=== PATIENT | male | born 1945 | race Two or more races ===

== ENCOUNTER 2021-06-15 11:52 | Emergency (ER) | payer MEDICAID, OTHER ==
[~2021-06-15] VITALS: Ht 177.8 cm; Wt 100.7 kg
[~2021-06-15 11:52] MED LIST: AMLO-496 PO; BENA20TA14 PO; BUDE160A3 IN; CHLO25TA2 PO; METF-372 PO; METO-159 PO; MONT-8 PO; OMEP20TA44 PO; PRAV20TA3 PO; TAMS0.4C36 PO
[2021-06-15] MEDS ORDERED: cloNIDine HCL 0.1 MG TAB PO ONE (12:15)
[2021-06-15 13:33] LABS: Basophils # (auto) 0.2 10 ^3/uL (0-0.2); Basophils % (auto) 3.3 % (0.0-2.0); Eosinophils # (auto) 0.2 10 ^3/uL (0-0.8); Eosinophils % (auto) 2.4 % (0.0-7.0); Hematocrit 41.4 % (41.0-53.0); Hemoglobin 14.1 g/dL (13.5-17.5); Lymphocytes # (auto) 1.3 10 ^3/uL (0.4-5.4); Lymphocytes % (auto) 16.8 % (10.0-50.0); Mean Corpuscular Hemoglobin 30.9 pg (28.0-32.0); Mean Corpuscular Volume 90.8 fL (80.0-100.0); Monocytes # (auto) 0.7 10 ^3/uL (0-1.3); Monocytes % (auto) 8.7 % (0.0-12.0); Neutrophils # (auto) 5.2 10 ^3/uL (1.6-8.6); Neutrophils % (auto) 68.8 % (37.0-80.0); Nucleated Red Blood Cells % 0.1 %; Red Blood Cells 4.56 10^6/uL (4.5-5.90); Red Cell Distribution Width 14.6 % (11.8-14.3); White Blood Cell 7.6 10^3/uL (4.4-10.8)
[2021-06-15 13:43] LABS: Albumin 3.7 g/dL (3.4-5.0); Calcium 8.6 mg/dL (8.5-10.1)
[2021-06-15 13:49] LABS: BUN/Creatinine Ratio 19.2; Bilirubin, Total 0.5 mg/dL (0.2-1.0); Total Protein 7.7 g/dL (6.4-8.2)
[2021-06-15 16:38] VITALS: BP 163/93
== END 2021-06-15 16:49 | disposition home or self-care (01) ==
LOC: ER 11:52
DX: I16.0 Hypertensive urgency (principal); I10 Essential (primary) hypertension; R51.9 Headache, unspecified; R42 Dizziness and giddiness; J45.909 Unspecified asthma, uncomplicated; E78.5 Hyperlipidemia, unspecified
CPT/HCPCS: 36415; 70450; 71045; 80053; 84484; 85025; 93005

== ENCOUNTER 2021-09-27 20:02 | Inpatient (IN) | payer OTHER, MEDICAID ==
[~2021-09-27] VITALS: Ht 162.6 cm; Wt 101.2 kg
[2021-09-27 20:48] LABS: Urine WBC None Seen /hpf (0 - 3)
[2021-09-27 20:57] LABS: Urine Bacteria NONE SEEN /hpf (None Seen); Urine Blood Negative /uL (Negative)
[2021-09-27 21:24] LABS: Basophils # (auto) 0.1 10 ^3/uL (0-0.2); Basophils % (auto) 0.7 % (0.0-2.0); Eosinophils # (auto) 0.5 10 ^3/uL (0-0.8); Eosinophils % (auto) 4.2 % (0.0-7.0); Hematocrit 42.5 % (41.0-53.0); Hemoglobin 14.3 g/dL (13.5-17.5); Lymphocytes # (auto) 1.4 10 ^3/uL (0.4-5.4); Lymphocytes % (auto) 11.5 % (10.0-50.0); Mean Corpuscular Hemoglobin 30.2 pg (28.0-32.0); Mean Corpuscular Hgb Conc. 33.6 g/dL (32.0-36.0); Mean Corpuscular Volume 89.8 fL (80.0-100.0); Monocytes # (auto) 0.8 10 ^3/uL (0-1.3); Monocytes % (auto) 6.6 % (0.0-12.0); Neutrophils # (auto) 9.3 10 ^3/uL (1.6-8.6); Nucleated Red Blood Cells % 0.1 %; Red Blood Cells 4.73 10^6/uL (4.5-5.90); Red Cell Distribution Width 14.3 % (11.8-14.3)
[2021-09-27] MEDS ORDERED: NITROGLYCERIN 0.4 MG SL TAB SL ONE (21:30)
[2021-09-27 21:44] LABS: Albumin 3.5 g/dL (3.4-5.0)
[2021-09-27 21:46] LABS: BUN/Creatinine Ratio 11.6
[2021-09-27 21:51] LABS: Bilirubin, Total 0.5 mg/dL (0.2-1.0); Total Protein 8.1 g/dL (6.4-8.2)
[2021-09-28] VITALS (47 sets, daily range): BP systolic 114–164; BP diastolic 66–95
[2021-09-28] MEDS ORDERED: FUROSEMIDE 40 MG/4 ML VIAL IV ONE (00:45)
[2021-09-28] MEDS ORDERED: NITROGLYCERIN 50MG/250ML 250 ML IV ONE (01:30)
[2021-09-28] MEDS ORDERED: DOCUSATE SOD 100 MG CAP PO PRN (07:00)
[2021-09-28] MEDS ORDERED: HYDROcodone-ACET 5/325MG TAB PO PRN (07:00)
[2021-09-28] MEDS ORDERED: MORPHINE SULFATE 4 MG/ML SYR/VIAL IV PRN (07:00)
[2021-09-28] MEDS ORDERED: NITROGLYCERIN 0.4 MG SL TAB SL PRN (07:00)
[2021-09-28] MEDS ORDERED: MORPHINE SULFATE INJECTION 2 MG/ML SYRG IV PRN (07:00)
[2021-09-28] MEDS: ENOXAPARIN SOD 40 MG/0.4 ML SYRINGE SC SCH (10:00)
[2021-09-28] MEDS: MULTIPLE VITAMIN TAB PO SCH (10:00)
[2021-09-28] MEDS: ASCORBIC ACID 500 MG TAB PO SCH ×2 (10:00→21:02)
[2021-09-28] MEDS: AZITHROMYCIN 500MG/ 250ML 250 ML IV SCH (10:00)
[2021-09-28] MEDS: ZINC SULFATE 220mg CAP or TAB PO SCH (10:00)
[2021-09-28] MEDS: ONDANSETRON HCL 4 MG/2 ML VIAL IV PRN ×2 (10:14→10:47)
[2021-09-28] MEDS ORDERED: IPRATROPIUM BROM 0.5 MG/2.5ML INH SOL NEB PRN (12:45)
[2021-09-28] MEDS ORDERED: MET50T PO (14:04)
[2021-09-28] MEDS ORDERED: ATOR20TA50 PO (14:04)
[2021-09-28] MEDS ORDERED: LISI20TA28 PO (14:04)
[2021-09-28] MEDS ORDERED: TAMS0.4C36 PO (14:05)
[2021-09-28] MEDS ORDERED: ASPI-498 PO (14:09)
[2021-09-28] MEDS ORDERED: DEXTROSE (50%) 50ML SYRG IV PRN (14:15)
[2021-09-28] MEDS ORDERED: LISINOPRIL 20 MG TAB ONE (15:12)
[2021-09-28] MEDS: ACETAMINOPHEN 325 MG TAB PO PRN ×2 (15:15→21:01)
[2021-09-28] MEDS: LISINOPRIL 20 MG TAB PO SCH (15:16)
[2021-09-28] MEDS: InsuLIN REG 1unit/0.01ml Soln (100units/ml) SC SCH ×2 (17:20→21:15)
[2021-09-28] MEDS: ACCU-CHEK COMFORT CURVE STRIP VI SCH ×2 (17:24→21:15)
[2021-09-28] MEDS: TAMSULOSIN HYDROCHLORIDE 0.4 MG CAP PO SCH (17:51)
[2021-09-28] MEDS: METOPROLOL TARTRATE 50 MG TAB PO SCH (21:02)
[2021-09-28] MEDS: PANTOPRAZOLE 40 MG TAB PO SCH (21:02)
[2021-09-28] MEDS: MONTELUKAST SODIUM 10 MG TAB PO SCH (21:02)
[2021-09-28] MEDS: DOCUSATE SOD 100 MG CAP PO SCH (21:02)
[2021-09-29] VITALS (45 sets, daily range): BP systolic 121–183; BP diastolic 70–112
[2021-09-29] MEDS ORDERED: NITROGLYCERIN 50MG/250ML 250 ML IV SCH (01:39)
[2021-09-29 03:48] LABS: Basophils # (auto) 0.1 10 ^3/uL (0-0.2); Basophils % (auto) 0.5 % (0.0-2.0); Eosinophils # (auto) 0.3 10 ^3/uL (0-0.8); Hematocrit 36.4 % (41.0-53.0); Hemoglobin 12.4 g/dL (13.5-17.5); Lymphocytes # (auto) 0.9 10 ^3/uL (0.4-5.4); Lymphocytes % (auto) 9.1 % (10.0-50.0); Mean Corpuscular Hemoglobin 30.7 pg (28.0-32.0); Mean Corpuscular Hgb Conc. 34.2 g/dL (32.0-36.0); Mean Corpuscular Volume 89.8 fL (80.0-100.0); Monocytes # (auto) 1.1 10 ^3/uL (0-1.3); Monocytes % (auto) 11.9 % (0.0-12.0); Neutrophils # (auto) 7.1 10 ^3/uL (1.6-8.6); Neutrophils % (auto) 75.5 % (37.0-80.0); Nucleated Red Blood Cells % 0.1 %; Red Blood Cells 4.05 10^6/uL (4.5-5.90); Red Cell Distribution Width 14.3 % (11.8-14.3); White Blood Cell 9.4 10^3/uL (4.4-10.8)
[2021-09-29 04:07] LABS: BUN/Creatinine Ratio 18.5; Calcium 8.2 mg/dL (8.5-10.1); Potassium 4.3 mmol/L (3.5-5.1)
[2021-09-29 04:10] LABS: Bilirubin, Total 0.6 mg/dL (0.2-1.0); Total Protein 6.8 g/dL (6.4-8.2)
[2021-09-29] MEDS: ACCU-CHEK COMFORT CURVE STRIP VI SCH ×4 (06:54→22:38)
[2021-09-29] MEDS: InsuLIN REG 1unit/0.01ml Soln (100units/ml) SC SCH ×4 (06:55→22:42)
[2021-09-29] MEDS ORDERED: hydrALAZINE HCL 20 MG/ML VL ONE (07:48)
[2021-09-29] MEDS: AZITHROMYCIN 500MG/ 250ML 250 ML IV SCH (09:25)
[2021-09-29] MEDS: DOCUSATE SOD 100 MG CAP PO SCH ×2 (09:26→22:28)
[2021-09-29] MEDS: ASPirin-EC 81 mg tab PO SCH (09:26)
[2021-09-29] MEDS: ATORVASTATIN 20 MG TAB PO SCH (09:26)
[2021-09-29] MEDS: ZINC SULFATE 220mg CAP or TAB PO SCH (09:26)
[2021-09-29] MEDS: PANTOPRAZOLE 40 MG TAB PO SCH ×2 (09:27→22:28)
[2021-09-29] MEDS: ASCORBIC ACID 500 MG TAB PO SCH ×2 (09:27→22:29)
[2021-09-29] MEDS: LISINOPRIL 20 MG TAB PO SCH (09:28)
[2021-09-29] MEDS: POLYETHYLENE GLYCOL 17 GM PWDR PO SCH (10:00)
[2021-09-29] MEDS ORDERED: PANTOPRAZOLE 40 MG TAB PO SCH (10:00)
[2021-09-29] MEDS: METOPROLOL TARTRATE 50 MG TAB PO SCH ×2 (10:55→22:33)
[2021-09-29] MEDS ORDERED: hydrALAZINE HCL 20 MG/ML VL IV PRN (12:30)
[2021-09-29] MEDS: FUROSEMIDE 40 MG/4 ML VIAL IV SCH (13:17)
[2021-09-29] MEDS: MULTIPLE VITAMIN TAB PO SCH (13:17)
[2021-09-29] MEDS: ENOXAPARIN SOD 40 MG/0.4 ML SYRINGE SC SCH (13:18)
[2021-09-29] MEDS: amLODIPine BESYLATE 5 MG TAB PO SCH (13:18)
[2021-09-29] MEDS: TAMSULOSIN HYDROCHLORIDE 0.4 MG CAP PO SCH (19:41)
[2021-09-29] MEDS: MONTELUKAST SODIUM 10 MG TAB PO SCH (22:28)
[2021-09-30 05:00] VITALS: BP 120/82
[2021-09-30 06:28] LABS: Basophils # (auto) 0 10 ^3/uL (0-0.2); Basophils % (auto) 0.5 % (0.0-2.0); Eosinophils # (auto) 0.1 10 ^3/uL (0-0.8); Eosinophils % (auto) 1.5 % (0.0-7.0); Hematocrit 37.5 % (41.0-53.0); Hemoglobin 12.6 g/dL (13.5-17.5); Lymphocytes # (auto) 1.1 10 ^3/uL (0.4-5.4); Lymphocytes % (auto) 13.2 % (10.0-50.0); Mean Corpuscular Hemoglobin 30.2 pg (28.0-32.0); Mean Corpuscular Hgb Conc. 33.6 g/dL (32.0-36.0); Mean Corpuscular Volume 90.1 fL (80.0-100.0); Monocytes % (auto) 11.7 % (0.0-12.0); Neutrophils # (auto) 6.2 10 ^3/uL (1.6-8.6); Neutrophils % (auto) 73.1 % (37.0-80.0); Nucleated Red Blood Cells % 0.2 %; Red Blood Cells 4.16 10^6/uL (4.5-5.90); Red Cell Distribution Width 14.1 % (11.8-14.3); White Blood Cell 8.5 10^3/uL (4.4-10.8)
[2021-09-30] MEDS: InsuLIN REG 1unit/0.01ml Soln (100units/ml) SC SCH ×4 (06:33→22:00)
[2021-09-30] MEDS: ACCU-CHEK COMFORT CURVE STRIP VI SCH ×4 (06:34→22:59)
[2021-09-30 06:47] LABS: BUN/Creatinine Ratio 19.5; Calcium 8.5 mg/dL (8.5-10.1)
[2021-09-30 09:00] VITALS: BP 126/75
[2021-09-30] MEDS: IPRATROPIUM BROM 0.5 MG/2.5ML INH SOL NEB SCH ×4 (09:43→22:03)
[2021-09-30] MEDS: ALBUTEROL SULF 2.5 MG/0.5ML(0.5%) NEB SOLN NEB SCH ×4 (09:43→22:03)
[2021-09-30] MEDS: POLYETHYLENE GLYCOL 17 GM PWDR PO SCH (10:00)
[2021-09-30] MEDS: DOCUSATE SOD 100 MG CAP PO SCH ×2 (10:00→22:58)
[2021-09-30] MEDS: ZINC SULFATE 220mg CAP or TAB PO SCH (10:33)
[2021-09-30] MEDS: ASCORBIC ACID 500 MG TAB PO SCH ×2 (10:33→22:58)
[2021-09-30] MEDS: ATORVASTATIN 20 MG TAB PO SCH (10:33)
[2021-09-30] MEDS: MULTIPLE VITAMIN TAB PO SCH (10:33)
[2021-09-30] MEDS: PANTOPRAZOLE 40 MG TAB PO SCH ×2 (10:33→22:58)
[2021-09-30] MEDS: LISINOPRIL 20 MG TAB PO SCH (10:34)
[2021-09-30] MEDS: METOPROLOL TARTRATE 50 MG TAB PO SCH ×2 (10:34→22:58)
[2021-09-30] MEDS: ASPirin-EC 81 mg tab PO SCH (10:35)
[2021-09-30] MEDS: amLODIPine BESYLATE 5 MG TAB PO SCH (10:35)
[2021-09-30] MEDS: AZITHROMYCIN 500MG/ 250ML 250 ML IV SCH (10:36)
[2021-09-30] MEDS: FUROSEMIDE 40 MG/4 ML VIAL IV SCH (10:36)
[2021-09-30] MEDS: ENOXAPARIN SOD 40 MG/0.4 ML SYRINGE SC SCH (10:38)
[2021-09-30 13:00] VITALS: BP 100/73
[2021-09-30 17:00] VITALS: BP 124/76
[2021-09-30] MEDS: TAMSULOSIN HYDROCHLORIDE 0.4 MG CAP PO SCH (17:52)
[2021-09-30 22:00] VITALS: BP 121/76
[2021-09-30] MEDS: MONTELUKAST SODIUM 10 MG TAB PO SCH (22:58)
[2021-10-01] MEDS: IPRATROPIUM BROM 0.5 MG/2.5ML INH SOL NEB SCH ×4 (02:03→14:37)
[2021-10-01] MEDS: ALBUTEROL SULF 2.5 MG/0.5ML(0.5%) NEB SOLN NEB SCH ×4 (02:03→14:37)
[2021-10-01 05:00] VITALS: BP 139/82
[2021-10-01] MEDS: InsuLIN REG 1unit/0.01ml Soln (100units/ml) SC SCH ×2 (06:47→11:30)
[2021-10-01] MEDS: ACCU-CHEK COMFORT CURVE STRIP VI SCH ×2 (06:47→12:50)
[2021-10-01] MEDS: POLYETHYLENE GLYCOL 17 GM PWDR PO SCH (08:05)
[2021-10-01] MEDS: ASPirin-EC 81 mg tab PO SCH (08:07)
[2021-10-01] MEDS: ATORVASTATIN 20 MG TAB PO SCH (08:07)
[2021-10-01] MEDS: MULTIPLE VITAMIN TAB PO SCH (08:08)
[2021-10-01] MEDS: ZINC SULFATE 220mg CAP or TAB PO SCH (08:08)
[2021-10-01] MEDS: ASCORBIC ACID 500 MG TAB PO SCH (08:09)
[2021-10-01] MEDS: ENOXAPARIN SOD 40 MG/0.4 ML SYRINGE SC SCH (08:10)
[2021-10-01] MEDS: DOCUSATE SOD 100 MG CAP PO SCH (08:10)
[2021-10-01] MEDS: PANTOPRAZOLE 40 MG TAB PO SCH (08:10)
[2021-10-01] MEDS: AZITHROMYCIN 500MG/ 250ML 250 ML IV SCH (08:13)
[2021-10-01] MEDS: FUROSEMIDE 40 MG/4 ML VIAL IV SCH (08:22)
[2021-10-01] MEDS: amLODIPine BESYLATE 5 MG TAB PO SCH (08:23)
[2021-10-01] MEDS: METOPROLOL TARTRATE 50 MG TAB PO SCH (08:23)
[2021-10-01] MEDS: LISINOPRIL 20 MG TAB PO SCH (08:24)
[2021-10-01] MEDS ORDERED: BUDESONIDE (INHALATION) 0.5 MG/2 ML NEB NEB SCH (10:00)
[2021-10-01] MEDS: predniSONE 20 MG TAB PO SCH ×2 (10:14→11:02)
[2021-10-01] MEDS ORDERED: PRED20TA2 PO (13:39)
[2021-10-01] MEDS ORDERED: DOXY-346 PO (13:39)
[2021-10-01] MEDS ORDERED: MET50T PO (13:39)
[2021-10-01] MEDS ORDERED: FURO1TAB33 PO (13:41)
[2021-10-01 17:25] VITALS: BP 145/100
== END 2021-10-01 18:00 | disposition home health service (06) | DRG 871 ==
LOC: ER 20:08 → TELE 09-28 06:51 → TELE-EAST 09-28 11:02 → ICU WEST 09-28 11:09 → TELE-EAST 09-29 20:10
PROVIDERS: ADMIT Internal Medicine; ATTEND Internal Medicine
DX: A41.9 Sepsis, unspecified organism (principal); J18.9 Pneumonia, unspecified organism; J96.21 Acute and chronic respiratory failure with hypoxia; J96.22 Acute and chronic respiratory failure with hypercapnia; I16.9 Hypertensive crisis, unspecified; I42.2 Other hypertrophic cardiomyopathy; I16.1 Hypertensive emergency; I50.9 Heart failure, unspecified; E11.65 Type 2 diabetes mellitus with hyperglycemia; E66.9 Obesity, unspecified; E78.00 Pure hypercholesterolemia, unspecified; E78.5 Hyperlipidemia, unspecified; K59.00 Constipation, unspecified; N40.0 Benign prostatic hyperplasia without lower urinary tract symptoms; Z20.822 Contact with and (suspected) exposure to COVID-19; I11.0 Hypertensive heart disease with heart failure; J45.909 Unspecified asthma, uncomplicated; Z79.84 Long term (current) use of oral hypoglycemic drugs; Z68.39 Body mass index [BMI] 39.0-39.9, adult; Z79.899 Other long term (current) drug therapy
CPT/HCPCS: 36415; 36600; 71045; 74176; 80048; 80053; 81001; 82805; 82962; 83690; 83880; 84484; 85025; 87081; 93005; 93306; 94640; 96365; 96367; 96372; 96375; 99291; G0378; J1815; J2405

== ENCOUNTER 2022-06-28 10:03 | Emergency (ER) | payer OTHER, MEDICAID ==
[~2022-06-28] VITALS: Ht 165.1 cm; Wt 107.0 kg
[~2022-06-28 10:03] MED LIST changes: +ASPI-498 PO; +ATOR20TA50 PO; +DOXY-346 PO; +FURO1TAB33 PO; +MET50T PO; -METO-159 PO; -PRAV20TA3 PO; +PRED20TA2 PO
[2022-06-28] MEDS ORDERED: cloNIDine HCL 0.1 MG TAB PO ONE (11:15)
[2022-06-28] MEDS ORDERED: IPRATROPIUM BROM 0.5 MG/2.5ML INH SOL NEB ONE (12:45)
[2022-06-28] MEDS ORDERED: ALBUTEROL SULF 2.5 MG/0.5ML(0.5%) NEB SOLN NEB ONE (12:45)
[2022-06-28] MEDS ORDERED: ALBUTEROL MEDNEB 2.5 mg/3ml NEB ONE (12:59)
[2022-06-28 13:31] VITALS: BP 126/82
[2022-06-28] MEDS ORDERED: ALBU108A5 IN (13:33)
[2022-06-28] MEDS ORDERED: LEVO500T31 PO (13:33)
[2022-06-28] MEDS ORDERED: PROM1SOL4 PO (13:33)
== END 2022-06-28 13:42 | disposition home or self-care (01) ==
LOC: ER 10:05
DX: J20.9 Acute bronchitis, unspecified (principal); I10 Essential (primary) hypertension; R07.89 Other chest pain; J45.909 Unspecified asthma, uncomplicated; E11.9 Type 2 diabetes mellitus without complications; E78.5 Hyperlipidemia, unspecified
CPT/HCPCS: 71046; 82962; 93005; 94640; 99283; J7030; J7644

== ENCOUNTER 2022-10-15 06:07 | Emergency (ER) | payer OTHER, MEDICAID ==
[~2022-10-15] VITALS: Ht 165.1 cm; Wt 104.5 kg
[~2022-10-15 06:07] MED LIST changes: +ALBU108A5 IN; +LEVO500T31 PO; +PROM1SOL4 PO
[2022-10-15] MEDS ORDERED: guaiFENesin-DM 100/10mg/5ml SYR PO ONE (08:15)
[2022-10-15] MEDS ORDERED: ACETAMINOPHEN 500 MG TAB PO ONE (08:15)
[2022-10-15 08:37] VITALS: BP 160/109
[2022-10-15 09:01] LABS: Basophils # (auto) 0.1 10 ^3/uL (0-0.2); Basophils % (auto) 0.7 % (0.0-2.0); Eosinophils # (auto) 0.3 10 ^3/uL (0-0.8); Eosinophils % (auto) 2.9 % (0.0-7.0); Hematocrit 44.8 % (41.0-53.0); Hemoglobin 15.1 g/dL (13.5-17.5); Lymphocytes # (auto) 1.3 10 ^3/uL (0.4-5.4); Lymphocytes % (auto) 13.7 % (10.0-50.0); Mean Corpuscular Hemoglobin 30.7 pg (28.0-32.0); Mean Corpuscular Hgb Conc. 33.6 g/dL (32.0-36.0); Mean Corpuscular Volume 91.3 fL (80.0-100.0); Monocytes # (auto) 0.7 10 ^3/uL (0-1.3); Monocytes % (auto) 7.3 % (0.0-12.0); Neutrophils # (auto) 7.4 10 ^3/uL (1.6-8.6); Neutrophils % (auto) 75.4 % (37.0-80.0); Nucleated Red Blood Cells % 0.1 %; Red Blood Cells 4.91 10^6/uL (4.5-5.90); Red Cell Distribution Width 15.1 % (11.8-14.3); White Blood Cell 9.8 10^3/uL (4.4-10.8)
[2022-10-15 09:32] LABS: Urine Bacteria NONE SEEN /hpf (None Seen); Urine Blood Negative /uL (Negative); Urine Mucus FEW (None Seen); Urine Specific Gravity 1.024 (1.001-1.035); Urine WBC 1 /hpf (0 - 3)
[2022-10-15 09:55] LABS: Albumin 3.5 g/dL (3.4-5.0); Calcium 9.5 mg/dL (8.5-10.1); Potassium 3.6 mmol/L (3.5-5.1)
[2022-10-15 09:59] LABS: BUN/Creatinine Ratio 13.4 (10.0-20.0); Total Protein 7.6 g/dL (6.4-8.2)
[2022-10-15] MEDS ORDERED: ACET1CAP14 PO ×2 (10:28→11:56)
[2022-10-15] MEDS ORDERED: LEVO750T64 PO ×2 (10:28→11:56)
[2022-10-15] MEDS ORDERED: BENZ1LOZ3 MT ×2 (10:28→11:56)
[2022-10-15] MEDS ORDERED: PROM1SOL4 PO ×2 (10:28→11:56)
== END 2022-10-15 10:44 | disposition home or self-care (01) ==
LOC: ER 06:07
DX: J18.9 Pneumonia, unspecified organism (principal); E11.9 Type 2 diabetes mellitus without complications; I10 Essential (primary) hypertension; E78.5 Hyperlipidemia, unspecified; J45.909 Unspecified asthma, uncomplicated; Z20.822 Contact with and (suspected) exposure to COVID-19
CPT/HCPCS: 36415; 71045; 80053; 81001; 83605; 85025; 87040; 87426; 87804

== ENCOUNTER 2024-09-18 11:31 | Emergency (ER) | payer OTHER, MEDICAID ==
[~2024-09-18] VITALS: Ht 167.6 cm; Wt 111.0 kg
[~2024-09-18 11:31] MED LIST changes: +ACET-6 PO; +ACET1CAP14 PO; -AMLO-496 PO; +AMLO1TAB22 PO; +AMLO1TAB23 PO; +ASPI-325 PO; +AZIT-43 PO; +BENA-36 PO; -BENA20TA14 PO; +BENZ1LOZ3 MT; +ERGO1CAP23 PO; +HYDR12.55 PO; +LEVO750T40 PO; +LISI20TA56 PO; +PANT40TA57 PO; -TAMS0.4C36 PO; +TAMS0.4C39 PO
--- NOTE | 2024-09-18 11:45 | ED.PDOC ---
History of Present Illness HPI Comments 79Y M with PMHx DM, HTN, and HLD presents to ED via EMS for chief complaint possible STEMI. Pt reports weakness x2yrs and chronic left shoulder pain. The lt shoulder pain worsens with movement. Pt denies chest pain, SOB, and n/v/d. Per pt, he was seen at [facility] and was referred to ED due to EKG showing ST elevation. EKG done in ED does not show ST elevation. No other symptoms reported. Chief Complaint: General Weakness Time Seen by MD: 11:30 Primary Care Provider: unknown Reviewed Notes: Nurses Notes, Adult Live In Caregiver Notes, Medications, Allergies Allergies: Coded Allergies: NO KNOWN ALLERGIES (Unverified , 08/02/14) Home Meds Active Scripts Albuterol Sulfate (Albuterol Sulfate Hfa) 108 Mcg/Act Aer, 108 MCG IN Q6HP PRN for 30 Days, #30 AER Prov:ROSALIA DE SANTIAGO MD 06/22/23 Ergocalciferol (VITAMIN D 65607 UNIT) 50,[address] [place], [address] UNIT PO Q7D for 7 Days, #7 TAB Prov:ROSALIA DE SANTIAGO MD 06/22/23 Azithromycin (Azithromycin) 250 Mg Tab, 250 MG PO DAILY for 3 Days, #3 TAB Prov:ROSALIA DE SANTIAGO MD 06/22/23 Promethazine-Dm (Promethazine Dm 6.25-15 mg/5Ml) 1 Citlaly Citlaly, 5 ML PO Q6HPRN PRN, #120 ML 0 Refills Prov:RUBÉN BURROUGHS [facility] 10/15/22 Benzocaine-Menthol (Mouth-Thro (Cepacol Sore Throat Extra 15-3.6 mg) 1 Sai Sai, 1 SAI MT Q2HPRN PRN, #16 SAI 0 Refills Prov:RUBÉN BURROUGHS [facility] 10/15/22 Acetaminophen (Tylenol) 325 Mg Cap, 325 MG PO Q4HPRN PRN, #30 CAP 0 Refills Take 1-2 caps po q4h prn for pain/fever (Do not exceed 3,000mg of acetaminophen in 24 hours) Prov:RUBÉN BURROUGHS [facility] 10/15/22 Levofloxacin Hemihydrate (LEVOFLOXACIN) 750 Mg Tab, 1 TAB PO DAILY for 7 Days, #7 TAB 0 Refills Prov:RUBÉN BURROUGHS [employer] 10/15/22 Promethazine-Dm (Promethazine Dm 6.25-15 mg/5Ml) 1 Citlaly Citlaly, 5 ML PO TID, #150 ML Prov:MARYATIGREQUAN PA 06/28/22 Albuterol Sulfate (Albuterol Sulfate Hfa) 108 Mcg/Act Aer, 108 MCG IN TID, #90 AER Prov:MARYATIGREQUAN PA 06/28/22 Levofloxacin (Levaquin) 500 Mg Tab, 500 MG PO DAILY, #10 TAB Prov:MARYAROSEMARIECait PA 06/28/22 Furosemide (Lasix) 20 Mg Tb, 1 TAB PO DAILY, #30 TAB 1 Refill Prov:RASHIDA ZARCO TEARER 10/01/21 Doxycycline (Monohydrate) (Doxycycline) 100 Mg Tab, 100 MG PO BID for 7 Days, #14 TAB Prov:CAROLEERASHIDA Montesinos TEARER 10/01/21 Prednisone (Prednisone) 20 Mg Tab, 40 MG PO DAILY for 5 Days, #10 TAB Prov:CAROLEERASHIDA M TEARER 10/01/21 Metoprolol Tartrate (LOPRESSOR TABLET) 50 Mg Tb, 50 MG PO BID for 30 Days, #60 TAB Prov:RASHIDA ZARCO TEARER 10/01/21 Omeprazole ([facility] Omeprazole) 20 Mg Tab, 20 MG PO DAILY, #30 TAB Prov:FRANK,PELON TEARER 08/02/14 Budesonide-Formoterol Fumarate (Symbicort) 1 Aer Aer, 1 AER IN BID, #10 AER Prov:FRANK,PELON TEARER 08/02/14 Benazepril Hcl (Benazepril Hcl) 20 Mg Tab, 1 TAB PO DAILY, #30 TAB 5 Refills Prov:FRANK,PELON TEARER 08/02/14 Amlodipine Besylate (Amlodipine Besylate) 10 Mg Tab, 1 TAB PO DAILY, #30 TAB 5 Refills Prov:FRANK,PELON TEARER 08/02/14 Metformin Hydrochloride (Metformin Hcl) 1,000 Mg Tab, 1 TAB PO BID, #60 TAB 5 Refills Prov:FRANK,PELON TEARER 08/02/14 Tamsulosin Hcl (Tamsulosin Hcl) 0.4 Mg Cap, 1 CAP PO DAILY, #30 CAP 5 Refills Prov:FRANKPELON TEARER 08/02/14 Montelukast Sodium (MONTELUKAST SODIUM) 10 Mg Tab, 1 TAB PO DAILY, #30 TAB 5 Refills Prov:FRANK,PELON TEARER 08/02/14 Chlorthalidone (Chlorthalidone) 25 Mg Tab, 25 MG PO DAILY, #30 TAB Prov:FRANK,PELON TEARER 08/02/14 Reported Medications Acetaminophen (Acetaminophen Extra Stren) 500 Mg Tab, 2 TAB PO PRN 06/20/23 Metoprolol Tartrate (LOPRESSOR TABLET) 50 Mg Tb, 1 TAB PO BID 06/20/23 Aspirin (Aspirin Low Dose) 81 Mg Tab, 1 TAB PO DAILY 06/20/23 Tamsulosin Hcl (Tamsulosin Hcl) 0.4 Mg Cap, 1 PO DAILY 06/20/23 Montelukast Sodium (MONTELUKAST SODIUM) 10 Mg Tab, 1 TAB PO DAILY 06/20/23 Atorvastatin Calcium (ATORVASTATIN CALCIUM) 20 Mg Tab, 1 TAB PO DAILY 06/20/23 Lisinopril (Lisinopril) 20 Mg Tab, 1 TAB PO BID 06/20/23 Metformin Hydrochloride (Metformin Hcl) 1,000 Mg Tab, 1 TAB PO BID 06/20/23 Amlodipine Besylate (Amlodipine Besylate) 5 Mg Tab, 1 TAB PO BID 06/20/23 Pantoprazole Sodium Sesquihydr (Pantoprazole Sodium Dr) 40 Mg Tab, 1 TAB PO DAILY 06/20/23 Hydrochlorothiazide (Hydrochlorothiazide) 12.5 Mg Tab, 1 TAB PO DAILY 06/20/23 Aspirin (ASPIRIN 81) 81 Mg Tab, 81 MG PO DAILY, TAB 09/28/21 Atorvastatin Calcium (ATORVASTATIN CALCIUM) 20 Mg Tab, 1 TAB PO DAILY, #30 TAB 5 Refills 09/28/21 Information Source: Patient, Emergency Med Personnel Mode of Arrival: EMS Severity: Mild Timing: Months Duration: Intermittent Prehospital treatment: 12 Lead EKG Past Medical History PAST MEDICAL HISTORY: Asthma, DM, High Lipids, HTN Surgical History: Denies all surgeries Family History Family History: Reviewed,noncontributory to illness Social History Smoker: Non-Smoker Alcohol: Denies ETOH Use Drugs: Denies Drug Use Lives In: Home Constitutional: reports: weakness; denies: chills, diaphoresis, fatigue, fever, malaise, sweats, others EENTM: denies: blurred vision, double vision, ear bleeding, ear discharge, ear drainage, ear pain, ear ringing, eye pain, eye redness, hearing loss, mouth pain, mouth swelling, nasal discharge, nose bleeding, nose congestion, nose pain, photophobia, tearing, throat pain, throat swelling, voice changes, others Respiratory: denies: cough, hemoptysis, orthopnea, SOB at rest, shortness of breath, SOB with excertion, stridor, wheezing, others Cardiovascular: denies: chest pain, dizzy spells, diaphoresis, Dyspnea on exertion, edema, irregular heart beat, left arm pain, lightheadedness, palpitations, PND, syncope, others Gastrointestinal: denies: abdomen distended, abdominal pain, blood streaked bowels, constipated, diarrhea, dysphagia, difficulty swallowing, hematemesis, melena, nausea, poor appetite, poor fluid intake, rectal bleeding, rectal pain, vomiting, others Genitourinary: denies: burning, dysuria, flank pain, frequency, hematuria, incontinence, penile discharge, penile sore, pain, testicle pain, testicle swelling, urgency, others Neurological: denies: dizziness, fainting, headache, left sided numbness, left sided weakness, numbness, paresthesia, pre-existing deficit, right sided numbness, right sided weakness, seizure, speech problems, tingling, tremors, weakness, others Musculoskeletal: reports: others (left shoulder pain); denies: back pain, gout, joint pain, joint swelling, muscle pain, muscle stiffness, neck pain Integumetry: denies: bruises, change in color, change in hair/nails, dryness, laceration, lesions, lumps, rash, wounds, others Allergic/Immunocompromised: denies: Difficulty Healing, Frequent Infections, Hives, Itching, others Hematologic/Lymphatic: denies: anemia, blood clots, easy bleeding, easy bruising, swollen glands, others Endocrine: denies: excessive hunger, excessive sweating, excessive thirst, excessive urination, flushing, intolerance to cold, intolerance to heat, unexplained weight gain, unexplained weight loss, others Psychiatric: denies: anxiety, bipolar disorder, depression, hopeless, panic di sorder, schizophrenia, sleepless, suicidal, others All Other Systems: Reviewed and Negative Physical Exam General Appearance: No Apparent Distress, Obese HEENT: Normal ENT Inspection, Pharynx Normal, TMs Normal Neck: Full Range of Motion, Non-Tender, Normal, Normal Inspection Respiratory: Chest Non-Tender, Lungs Clear, No Accessory Muscle Use, No Respiratory Distress, Normal Breath Sounds Cardiovascular: No Edema, No Murmur, No Gallop, Normal Peripheral Pulses, Regular Rate/Rhythm Breast Exam: Deferred Gastrointestinal: No Organomegaly, Non Tender, Normal Bowel Sounds, Soft Genitalia: Deferred Pelvic: Deferred Rectal: Deferred Extremities: No calf tenderness, Normal capillary refill, Normal inspection, Normal range of motion, Non-tender Musculoskeletal : Location: Left Extremity Location: Shoulder Apperance: Limited ROM, Tenderness: Mild Neurologic: Alert, oracle programmer analyst II-XII nml as Tested, No Motor Deficits, Normal Affect, Normal Mood, No Sensory Deficits Cerebellar Function: NOT DONE Reflexes: NOT DONE Skin: Dry, Normal Color, Warm Lymphatic: NOT DONE Was a procedure done? Was a procedure done?: No Differential Dx Considerations may include: STEMI, NSTEMI X-Ray, Labs, Meds, VS Vital Signs Date Time Temp Pulse Resp B/P (MAP) Pulse Ox O2 Delivery O2 Flow Rate FiO2 09/18/24 12:21 98.3 68 18 120/76 (91) 92 98.3 09/18/24 12:21 Room Air* 0 21 09/18/24 11:39 98.0 83 18 152/93 (112) 100 98.0 09/18/24 11:31 76 Lab Test 09/18/24 11:56 Range/Units White Blood Count 8.1 4.4-10.8 10^3/uL Red Blood Count 4.98 4.5-5.90 10^6/uL Hemoglobin 14.9 13.5-17.5 g/dL Hematocrit 44.9 41.0-53.0 % Mean Corpuscular Volume 90.1 80.0-100.0 fL Mean Corpuscular Hemoglobin 30.0 28.0-32.0 pg Mean Corpuscular Hemoglobin Concent 33.3 32.0-36.0 g/dL Red Cell Distribution Width 15.2 H 11.8-14.3 % Platelet Count 250 140-450 10^3/uL Mean Platelet Volume 7.1 6.9-10.8 fL Neutrophils (%) (Auto) 63.6 37.0-80.0 % Lymphocytes (%) (Auto) 23.9 10.0-50.0 % Monocytes (%) (Auto) 8.8 0.0-12.0 % Eosinophils (%) (Auto) 3.2 0.0-7.0 % Basophils (%) (Auto) 0.5 0.0-2.0 % Neutrophils # (Auto) 5.1 1.6-8.6 10 ^3/uL Lymphocytes # (Auto) 1.9 0.4-5.4 10 ^3/uL Monocytes # (Auto) 0.7 0-1.3 10 ^3/uL Eosinophils # (Auto) 0.3 0-0.8 10 ^3/uL Basophils # (Auto) 0 0-0.2 10 ^3/uL Nucleated Red Blood Cells 0.2 % Prothrombin Time 11.4 9.3-11.8 sec Prothrombin Time INR 1.08 0.9-1.15 Activated Partial Thromboplast Time 27.6 24.5-34.5 SEC D-Dimer, Quantitative 0.25 0.0-0.49 mg/L FEU Sodium Level 137 136-145 mmol/L Potassium Level 4.5 3.5-5.1 mmol/L Chloride Level 102 98-107 mmol/L Carbon Dioxide Level 30 20-31 mmol/L Anion Gap 5 5-15 Blood Urea Nitrogen 24 H 9-23 mg/dL Creatinine 1.35 H 0.700-1.30 mg/dL Glomerular Filtration Rate Calc 54 >90 mL/min BUN/Creatinine Ratio 17.8 10.0-20.0 Serum Glucose 126 H 74-106 mg/dL Calcium Level 10.1 8.7-10.4 mg/dL Magnesium Level 1.8 1.6-2.6 mg/dL Total Bilirubin 0.4 0.2-1.0 mg/dL Aspartate Amino Transferase (AST) 28 13-40 U/L Alanine Aminotransferase (ALT) 35 7-40 U/L Alkaline Phosphatase 65 46-116 U/L Troponin I High Sensitivity 32 </=54 ng/L B-Type Natriuretic Peptide 143.75 0-100 pg/mL Total Protein 7.9 5.7-8.2 g/dL Albumin 4.6 3.2-4.8 g/dL [place] [id number] Ph: [phone] DIAGNOSTIC IMAGING Diagnostic Imaging Report : [id number] Signed PATIENT: MONSTER WHIPPLE PACCT: [id number] UNIT: [id number] : 1945 LOC: ER ROOM / BED: / AGE / SEX: 79 / M ADM STATUS: REG ER SERVICE [id number] ORDERING PHYSICIAN: CHIQUITA AGUILAR MD PROCEDURE(s): CXRP - CHEST PORTABLE REASON: cough ORDER NUMBER(s): [id number], ACCESSION NUMBER(s): [id number] EXAM: XY CHEST PORTABLE Indication: cough Technique: Single frontal view of the chest was obtained Comparison: XY CHEST XRAY 1 VIEW on DOS: 10/15/22, CHEST XRAY 1 VIEW on DOS: 09/29/21, CXR1 on DOS: 09/29/21, CHEST PORTABLE on DOS: 09/27/21, CXRP on DOS: 09/27/21 FINDINGS: Lines and Tubes: None Lungs: No focal consolidation. Pleura: No effusion. No pneumothorax. Cardiomediastinal contours: Unremarkable Bones: No acute osseous abnormality. IMPRESSION: No acute cardiopulmonary disease. ATED BY: JUAN ANTONIO JIMENEZ MD DICTATED DATE/TIME: 09/18/24 1233 SIGNED BY: JUAN ANTONIO JIMENEZ MD SIGNED DATE/TIME: 09/18/24 1233 CC: [place] [id number] Ph: [phone] DIAGNOSTIC IMAGING Diagnostic Imaging Report : [id number] Signed PATIENT: MONSTER WHIPPLE PACCT: [id number] UNIT: [id number] : 1945 LOC: ER ROOM / BED: / AGE / SEX: 79 / M ADM STATUS: REG ER SERVICE [id number] ORDERING PHYSICIAN: CHIQUITA AGUILAR MD PROCEDURE(s): LSHD2 - L SHOULDER 2+ VIEW XRAY REASON: left shoulder pain x 2 years ORDER NUMBER(s): [id number], ACCESSION NUMBER(s): [id number] CLINICAL INDICATION: left shoulder pain x 2 years TECHNIQUE: 3 radiographic views of the left shoulder were obtained. Comparison: None FINDINGS/IMPRESSION: Possible age indeterminate left humeral head fracture. Severe osteoarthrosis of the right glenohumeral joint. Correlate with point tenderness. ATED BY: JUAN ANTONIO JIMENEZ MD DICTATED DATE/TIME: 09/18/24 1243 SIGNED BY: JUAN ANTONIO JIMENEZ MD SIGNED DATE/TIME: 09/18/24 1243 CC: X-Ray, Labs, Meds, VS Comment This 79-year-old male presented to an outside clinic secondary to chronic left shoulder pain and weakness. His symptoms have been ongoing for 1-2 years. He was therefore routine follow up. He had an EKG done secondary to left shoulder pain which showed nonspecific changes. The patient denies chest pain, shortness of breath, fever, chills, sweats, nausea or vomiting. He denies any association with chest pain with ambulation no respiration. However, he states movement of his left shoulder increases the pain and improves with rest. Triage note mentions dizziness. However, the patient denied being dizzy or weak. Time of 1ST Reevaluation: 12:00 Reevaluation 1ST: Unchanged Patient Education/Counseling: Diagnosis, Treatment Family Education/Counseling: No Family Present Departure 1 Departure Time of Disposition: 13:03 Impression: Primary Impression: Left shoulder pain Additional Impression: Osteoarthritis Disposition: 01 HOME / SELF CARE / HOMELESS Condition: Good Discharged With: Self Critical Care Note Critical Care Time?: No Stability Stability form required: No Heart Score Heart Score: Heart Score Response (Comments) Value History Slightly Suspicious 0 EKG Normal 0 Age >65 2 Risk Factors >3 or Hx ASHD ( ) 2 Troponin Normal limit 0 Total 4 I personally scribed for CHIQUITA AGUILAR MD ([email or web address]) on 09/18/24 at 11:45. Electronically submitted by Oly Ordonez ([email or web address]). I personally scribed for CHIQUITA AGUILAR MD ([email or web address]) on 09/18/24 at 12:47. Electronically submitted by Oly Ordonez ([email or web address]). I personally scribed for CHIQUITA AGUILAR MD ([email or web address]) on 09/18/24 at 12:48. Electronically submitted by Oly Ordonez ([email or web address]). CHIQUITA AGUILAR MD Sep 18, 2024 11:45
[2024-09-18 12:17] LABS: Basophils # (auto) 0 10 ^3/uL (0-0.2); Basophils % (auto) 0.5 % (0.0-2.0); Eosinophils # (auto) 0.3 10 ^3/uL (0-0.8); Eosinophils % (auto) 3.2 % (0.0-7.0); Hematocrit 44.9 % (41.0-53.0); Hemoglobin 14.9 g/dL (13.5-17.5); Lymphocytes # (auto) 1.9 10 ^3/uL (0.4-5.4); Lymphocytes % (auto) 23.9 % (10.0-50.0); Mean Corpuscular Hgb Conc. 33.3 g/dL (32.0-36.0); Mean Corpuscular Volume 90.1 fL (80.0-100.0); Monocytes # (auto) 0.7 10 ^3/uL (0-1.3); Monocytes % (auto) 8.8 % (0.0-12.0); Neutrophils # (auto) 5.1 10 ^3/uL (1.6-8.6); Neutrophils % (auto) 63.6 % (37.0-80.0); Nucleated Red Blood Cells % 0.2 %; Platelet Count (auto) 250 10^3/uL (140-450); Red Blood Cells 4.98 10^6/uL (4.5-5.90); Red Cell Distribution Width 15.2 % (11.8-14.3); White Blood Cell 8.1 10^3/uL (4.4-10.8)
[2024-09-18 12:27] LABS: Alanine Aminotransferase 35 U/L (7-40); Alkaline Phosphatase 65 U/L (46-116); Anion Gap 5 (5-15); Aspartate Aminotransferase 28 U/L (13-40); BUN/Creatinine Ratio 17.8 (10.0-20.0); Calcium 10.1 mg/dL (8.7-10.4); Carbon Dioxide 30 mmol/L (20-31); Chloride 102 mmol/L (98-107); Magnesium 1.8 mg/dL (1.6-2.6); Potassium 4.5 mmol/L (3.5-5.1); Sodium 137 mmol/L (136-145); Total Protein 7.9 g/dL (5.7-8.2)
[2024-09-18 12:28] LABS: Albumin 4.6 g/dL (3.2-4.8); Bilirubin, Total 0.4 mg/dL (0.2-1.0); Blood Urea Nitrogen 24 mg/dL (9-23); Glucose 126 mg/dL (74-106)
--- NOTE | 2024-09-18 12:35 | DVH ---
EXAM: XY CHEST PORTABLE Indication: cough Technique: Single frontal view of the chest was obtained Comparison: XY CHEST XRAY 1 VIEW on DOS: 10/15/22, CHEST XRAY 1 VIEW on DOS: 09/29/21, CXR1 on DOS: , CHEST PORTABLE on DOS: 09/27/21, CXRP on DOS: 09/27/21 FINDINGS: Lines and Tubes: None Lungs: No focal consolidation. Pleura: No effusion. No pneumothorax. Cardiomediastinal contours: Unremarkable Bones: No acute osseous abnormality. IMPRESSION: No acute cardiopulmonary disease.
--- NOTE | 2024-09-18 12:46 | DVH ---
CLINICAL INDICATION: left shoulder pain x 2 years TECHNIQUE: 3 radiographic views of the left shoulder were obtained. Comparison: None FINDINGS/IMPRESSION: Possible age indeterminate left humeral head fracture. Severe osteoarthrosis of the right glenohumer al joint. Correlate with point tenderness.
[2024-09-18 12:49] LABS: INR 1.08 (0.9-1.15); Partial Thromboplastin Time 27.6 SEC (24.5-34.5); Prothrombin Time 11.4 sec (9.3-11.8)
[2024-09-18 13:29] VITALS: BP 157/76; PULSE 64; RESP 18; TEMP 97.7; O2SAT 92
--- NOTE | 2024-09-21 10:51 | ECG ---
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
== END 2024-09-18 13:33 | disposition home or self-care (01) ==
LOC: EDBD 11:31 → ER 11:42
DX: M19.012 Primary osteoarthritis, left shoulder (principal); I10 Essential (primary) hypertension; E11.9 Type 2 diabetes mellitus without complications; E78.5 Hyperlipidemia, unspecified; J45.909 Unspecified asthma, uncomplicated; Z79.82 Long term (current) use of aspirin; Z79.84 Long term (current) use of oral hypoglycemic drugs; Z79.899 Other long term (current) drug therapy
CPT/HCPCS: 36415; 71045; 73030; 80053; 83735; 83880; 84484; 85025; 85379; 85610; 85730; 93005